=== PATIENT | male | born 1990 | race Two or more races ===

== ENCOUNTER 2017-04-10 08:36 | Emergency (ER) | payer SELFPAY ==
[~2017-04-10 08:36] MED LIST: BACTRIM DS1 TAB PO; NORCO 5/3251 TA1 PO; TYLENOL325 MG PO; [UNRECOGNIZED DRUG - REMARK]
[2017-04-10] MEDS ORDERED: NO HOME MEDS (08:47)
[2017-04-10 09:49] LABS: BASO % 0.1 % (0-2); EOS % 0.7 % (0-7); EOSINOPHIL ABSOLUTE COUNT 0.1 tho/cmm (0.0-0.7); HCT-HEMATOCRIT 50.1 % (36.0-53.5); HGB-HEMOGLOBIN 17.5 gm/dl (13.5-17.0); IMMATURE GRANULOCYTES ABSOLUTE 0.06 tho/cmm (0-0.03); IMMATURE GRANULOCYTES PERCENT 0.4 % (0-0.3); LYMPH % 12.5 % (20-45); LYMPH ABSOLUTE COUNT 1.7 tho/cmm (0.8-4.5); MCH (MEAN CORPUSCULAR HGB) 31.4 pg (28.0-32.0); MCHC MEAN CORPUSCULAR HGB CONC 34.9 % (32.0-36.0); MCV (MEAN CELL VOLUME) 89.9 fl (82.0-96.0); MEAN PLATELET VOLUME 8.7 cmc (9.4-12.4); MONO % 4.6 % (0-12); MONOCYTE ABSOLUTE COUNT 0.6 tho/cmm (0.0-1.2); NEUTROPHIL ABSOLUTE COUNT 11.3 tho/cmm (1.6-8.0); NEUTROPHIL-AUTOMATED 11.3 tho/cmm (1.6-8.0); NEUTROPHILS % 81.7 % (40-80); PLATELET COUNT 301 tho/cmm (150-450); RED BLOOD COUNT 5.57 mil/cmm (4.40-5.70); RED CELL DISTRIBUTION WIDTH 12.5 % (12.4-16.4); WHITE BLOOD COUNT 13.8 tho/cmm (4.0-10.0)
[2017-04-10 09:58] LABS: ALKALINE PHOSPHATASE 84 U/L (33-138); ALT/SGPT 50 U/L (12-78); ANION GAP 13 mmol/L (0-20); AST/SGOT 28 U/L (10-40); BILIRUBIN,TOTAL 0.5 mg/dl (0.0-1.5); BLOOD UREA NITROGEN 12 mg/dl (6-24); CALCIUM 9.1 mg/dl (8.5-10.5); CARBON DIOXIDE-VENOUS 28 mmol/L (22-32); CHLORIDE 104 mmol/l (96-110); CREATININE 1.06 mg/dl (0.60-1.30); GLUCOSE 141 mg/dL (70-110); LIPASE 446 U/L (73-393); POTASSIUM 4.2 mmol/L (3.7-5.1); SODIUM 141 mmol/L (135-145); eGFR VALUE FOR BLACK >90 mL/Min
[2017-04-10 10:00] LABS: C-REACTIVE PROTEIN <0.3 mg/dl (0-0.9)
[2017-04-10 10:51] LABS: URINE BILIRUBIN NEGATIVE (NEG); URINE BLOOD NEGATIVE (NEG); URINE GLUCOSE (UA) NEGATIVE (NEG); URINE KETONE SMALL (NEG); URINE LEUKOCYTE ESTERASE NEGATIVE (NEG); URINE NITRITE NEGATIVE (NEG); URINE PROTEIN NEGATIVE (NEG)
[2017-04-10 10:52] LABS: URINE APPEARANCE CLEAR; URINE COLOR YELLOW
[2017-04-10] MEDS ORDERED: NORCO 5-325 TA1 EACH PO (11:42)
[2017-04-10] MEDS ORDERED: PRILOSEC OTC20 M1 PO (11:42)
[2017-04-10] MEDS ORDERED: COMPAZINE10 MG PO (11:42)
== END 2017-04-10 12:34 ==
LOC: EDMED 08:36
PROVIDERS: Emergency Medicine
DX: M54.6 Pain in thoracic spine (principal)
CPT/HCPCS: C9113; J1885; J2270; J2405; J7030; Q9967